=== PATIENT | female | born 2000 | race Two or more races ===

== ENCOUNTER 2024-07-13 20:31 | Observation (INO) | payer MEDICAID ==
[~2024-07-13] VITALS: Ht 152.4 cm; Wt 51.3 kg
== END 2024-07-13 22:12 | disposition home or self-care (01) ==
LOC: LDRP 20:31
PROVIDERS: ADMIT Obstetrics & Gynecology; ATTEND Obstetrics & Gynecology
DX: O26.892 Other specified pregnancy related conditions, second trimester (principal); R11.0 Nausea; M79.89 Other specified soft tissue disorders; R51.9 Headache, unspecified; Z3A.21 21 weeks gestation of pregnancy
CPT/HCPCS: 59025; 81002; 94760; G0378